=== PATIENT | male | born 1975 | race Hispanic/Latino ===

== ENCOUNTER 2020-11-21 00:19 | Emergency (ER) | payer MEDICAID, OTHER, SELFPAY ==
[~2020-11-21] VITALS: Ht 167.6 cm; Wt 74.1 kg
[2020-11-21] MEDS ORDERED: ONDANSETRON 4 MG ORAL DISINTEGRATING TAB PO ONE (01:05)
[2020-11-21 02:45] VITALS: BP 101/69
== END 2020-11-21 03:20 | disposition home or self-care (01) ==
LOC: M ED 00:19
DX: F12.129 Cannabis abuse with intoxication, unspecified (principal)
CPT/HCPCS: 99284; Q0162